=== PATIENT | female | born 1970 | race Caucasian/White ===

== ENCOUNTER 2024-04-21 18:19 | Emergency (ER) | payer OTHER, BC ==
[2024-04-21 18:32] VITALS: BP 136/84; PULSE 103; RESP 18; TEMP 98.2
[2024-04-21] MEDS: ACETAMINOPHEN TAB 325 MG TAB PO STA (19:50)
--- NOTE | 2024-04-21 21:11 | XR ---
EXAMINATION TYPE: XR forearm LT, XR hand complete LT DATE OF EXAM: 04/21/2024 8:17 PM CLINICAL INDICATION:Female, 53 years old with history of pain; [facility] COMPARISON: None TECHNIQUE: XR forearm LT, XR hand complete LT; forearm and left hand was examined in AP and lateral p rojections. Additional oblique view of the left hand. FINDINGS: No acute osseous pathology, soft tissue swelling or joint dislocations are seen. IMPRESSION: No evidence of acute fracture or other significant abnormality.
--- NOTE | 2024-04-21 21:20 | XR ---
EXAMINATION TYPE: XR pelvis AP view DATE OF EXAM: 04/21/2024 8:43 PM CLINICAL INDICATION:Female, 53 years old with history of pain; [facility] COMPARISON: None TECHNIQUE: XR pelvis AP view, examined in a single projection. FINDINGS: No acute fractures or dislocations. Metallic densities appear external to patient. IMPRESSION: No acute osseous pathology.
--- NOTE | 2024-04-21 21:24 | XR ---
EXAMINATION TYPE: XR femur RT, XR tibia fibula bilateral DATE OF EXAM: 04/21/2024 8:43 PM CLINICAL INDICATION:Female, 53 years old with history of pain; H COMPARISON: Pelvis radiograph the same day TECHNIQUE: XR femur RT, XR tibia fibula bilateral examined in Frontal and lateral projections. FINDINGS: No evidence of acute osseous pathology, joint dislocation, or significant soft tissue swel ling . Mild degenerative changes of the right hip and knee. IMPRESSION: No acute osseous pathology.
[2024-04-21] MEDS: methocarbamoL 500 MG TAB PO STA (22:20)
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
== END 2024-04-21 22:47 | disposition home or self-care (01) ==
LOC: EC 18:19
DX: M79.602 Pain in left arm (principal); Z88.0 Allergy status to penicillin; Z88.5 Allergy status to narcotic agent; V89.2XXA Person injured in unspecified motor-vehicle accident, traffic, initial encounter; Y92.411 Interstate highway as the place of occurrence of the external cause
CPT/HCPCS: 72170; 99284

== ENCOUNTER → 2024-08-05 | Outpatient (CLI) | payer BC ==
--- NOTE | 2024-08-06 22:32 | MM ---
Reason for Exam: Screening (asymptomatic). Last mammogram was performed 8 year(s) and 8 month(s) ago. Patient History: Menarche at age 8. First Full-Term at age 23. Postmenopausal. Patient has history of breast feeding. Maternal aunt had breast cancer. Risk Values: Beena 5 year model risk: 1.4%. NCI Lifetime model risk: 9.9%. Prior Study Comparison: 07/25/2005 Right Diagnostic Mammogram, [facility]. 12/20/2008 Bilateral Screening Mammogram, [facility]. 11/23/2015 Bilateral Screening Mammogram, [facility]. Tissue Density: There are scattered areas of fibroglandular density. Findings: Analyzed By CAD. The pattern is symmetrical. No significant interval change is evident. No suspicious groups of microcalcifications, spiculated or lobular masses, architectural distortion or other secondary signs of malignancy are mammographically apparent. Overall Assessment: Benign, BI-RAD 2 Management: Screening Mammogram of both breasts in 1 year. A negative mammogram report should not preclude additional follow up of suspicious palpable abnormalities. Patient should continue monthly self breast exam. A clinical breast exam by your physician is recommended on an annual basis and results should be correlated with mammographic findings. Note on Beena scores and lifetime risk: 1. A Beena score greater than 3% is considered moderate risk. If this is the case, consider specialist referral to assess eligibility for a risk reducing agent. 2. If overall lifetime risk for the development of breast cancer is 20% or higher, the patient may qualify for future screening with alternating mammogram and breast MRI. [facility], , 08/06/2024 10:29 PM. Electronically signed and approved by: Archie Jose D.O. Radiologis
== END | disposition home or self-care (01) ==
LOC: RADMAMWWP 13:32
PROVIDERS: ATTEND Family Medicine
DX: Z12.31 Encounter for screening mammogram for malignant neoplasm of breast (principal); R92.323 Mammographic fibroglandular density, bilateral breasts; Z78.0 Asymptomatic menopausal state; Z80.3 Family history of malignant neoplasm of breast
CPT/HCPCS: 77063; 77067